=== PATIENT | male | born 1945 | race Caucasian/White ===

== ENCOUNTER → 2016-11-20 | Outpatient (CLI) | payer MEDICARE, OTHER ==
[2016-11-20 11:31] LABS: Basophils # (A) 0.1 k/uL (0-0.2); Basophils % (A) 1 %; CHCM 28.9; Eosinophils # (A) 0.2 k/uL (0-0.7); Eosinophils % (A) 3 %; HDW 3.31; HGB 11.4 gm/dL (13.0-17.5); Hypochromasia Marked; Luc # (Auto) 0.23; Luc % (Auto) 3; Lymphocytes # (A) 1.5 k/uL (1.0-4.8); Lymphocytes % (A) 18 %; MCH 21.7 pg (25.0-35.0); MCHC 29.9 g/dL (31.0-37.0); MCV 72.7 fL (80.0-100.0); Mean Platelet Volume 6.4; Microcytosis Moderate; Monocytes # (A) 0.2 k/uL (0-1.0); Monocytes % (A) 3 %; Neutrophils # (A) 6.1 k/uL (1.3-7.7); Neutrophils % (A) 72 %; RBC 5.23 m/uL (4.30-5.90); RDW 15.8 % (11.5-15.5); WBC 8.4 k/uL (3.8-10.6); WBC (Perox) 9.02
== END | disposition home or self-care (01) ==
LOC: LABPAT 10:58
PROVIDERS: ATTEND Anesthesiology
DX: Z01.812 Encounter for preprocedural laboratory examination (principal)
CPT/HCPCS: 85025

== ENCOUNTER 2016-11-25 12:56 | Inpatient (IN) | payer MEDICARE, OTHER ==
[2016-11-19 14:57] VITALS: BMI 22.8
[~2016-11-25 12:56] MED LIST: DEXAMETHASONE SOD PHOSPHATE 10 MG/ML 1 ML VIAL IV ONE; HEPARIN SODIUM,PORCINE 5,000 UNIT/ML 1 ML VIAL SQ ONE; LACTATED RINGERS 1,000 ML IV SCH; ONDANSETRON 4 MG/2 ML VIAL IVP ONE
[2016-11-25] MEDS ORDERED: LIDOCAINE 1% 20 ML VIAL (10MG/ML) FOR IV START INTRADERMA ONE (13:11)
[2016-11-25] MEDS ORDERED: LACTATED RINGERS 1,000 ML IV ONE (13:23)
[2016-11-25 13:25] LABS: Glucose,Whole Blood 126 mg/dL (75-99)
[2016-11-25] MEDS ORDERED: HEPARIN SODIUM,PORCINE 5,000 UNIT/ML 1 ML VIAL SQ ONE (13:33)
[2016-11-25] MEDS ORDERED: LIDOCAINE 1% INJ 10MG/ML (20 ML MDV) ONE (14:11)
[2016-11-25] MEDS ORDERED: HYDROmorphone (PF) 1 MG/ML ONE (14:11)
[2016-11-25] MEDS ORDERED: ROCURONIUM BROMIDE 10 MG/ML 10 ML VIAL IV ONE (14:11)
[2016-11-25] MEDS ORDERED: ePHEDrine 50 MG/ML 1 ML AMP ONE (14:11)
[2016-11-25] MEDS ORDERED: MIDAZOLAM 2 MG/2 ML VIAL ONE (14:11)
[2016-11-25] MEDS ORDERED: SODIUM CHLORIDE 0.9% 100 ML BAG ONE (14:11)
[2016-11-25] MEDS ORDERED: PROPOFOL 10 MG/ML 20 ML VIAL IV ONE (14:11)
[2016-11-25] MEDS ORDERED: NEOSTIGMINE 1 MG/ML 10 ML VIAL ONE (14:11)
[2016-11-25] MEDS ORDERED: SUCCINYLCHOLINE CHLORIDE VIAL 200 MG/10 ML VIAL IV ONE (14:11)
[2016-11-25] MEDS ORDERED: GLYCOPYRROLATE 0.2 MG/ML 2 ML VIAL ONE (14:11)
[2016-11-25] MEDS ORDERED: ceFAZolin 1,000 MG VIAL ONE (14:11)
[2016-11-25] MEDS ORDERED: fentaNYL (PF) 50 MCG/ML 2 ML AMP ONE (14:11)
[2016-11-25] MEDS: ceFAZolin 2 GM in SODIUM CHLORIDE 0.9% 100 ML IVPB ONE ×3 (14:20→17:33)
[2016-11-25] MEDS ORDERED: LIDOCAINE 1% INJ 10MG/ML (20 ML MDV) SQ ONE (14:31)
[2016-11-25] MEDS ORDERED: HYDROmorphone 1 MG/ML 1 ML SYRINGE IV PRN (15:40)
[2016-11-25] MEDS ORDERED: ONDANSETRON 4 MG/2 ML VIAL IVP PRN (15:40)
[2016-11-25] MEDS ORDERED: NALOXONE 0.4 MG/ML 1 ML VIAL IV PRN (15:40)
--- NOTE | 2016-11-25 15:40 | P.OP ---
Date of Procedure: 11/25/16 Preoperative Diagnosis: ventral hernia Postoperative Diagnosis: ventral hernia -containing bowel, extensive adhesions Procedure(s) Performed: ventral hernia repair with mesh, lysis of adhesions Anesthesia: MERY Surgeon: Simi Bush Estimated Blood Loss (ml): 15 IV fluids (ml): 1,600 Pathology: other (hernia sac) Condition: stable Disposition: PACU Indications for Procedure: symptomatic ventral hernia Operative Findings: ventral hernia containing bowel extensive adhesions Description of Procedure: patient was taken to the operating room and following induction of general anesthesia the abdomen was prepped and draped in a sterile fashion. The ventral hernia was just to the left of the supraumbilical midline area. There appeared to be bowel present in the hernia sac. The incision was made along the midline and the peritoneal cavity was entered. There was noted to be extensive adhesions and these were carefully taken down such that the hernia on the anterior abdominal wall was reduced. The hernia sac was removed and sent for pathology. The skin was freed from the area of the ventral hernia defect and the defect was closed using interrupted 0 Ethibond sutures. Midline abdominal incision was then closed using interrupted 0 Ethibond sutures as well. An ultrapro mesh was placed and secured using a Prolene suture. The subcutaneous tissues were reapproximated using 3-0 Vicryl. A Yoav-Hernandez drain was placed prior to this. The skin was reapproximated using carrillo. One percent lidocaine was used to anesthetize the area of the skin. Patient tolerated procedure in stable condition. The actual hernia defect was approximately 5 cm in size. all instrument and sponge counts were correct at the end of the case.
[2016-11-25] MEDS ORDERED: NITROGLYCERIN SL TABS 0.4 MG TAB SUBLINGUAL PRN (15:46)
[2016-11-25] MEDS: HYDROmorphone 1 MG/ML 1 ML SYRINGE IVP PRN ×7 (16:00→19:39)
[2016-11-25] MEDS ORDERED: MIDAZOLAM 2 MG/2 ML VIAL IVP ONE (16:31)
[2016-11-25 16:45] LABS: Glucose,Whole Blood 178 mg/dL (75-99)
[2016-11-25] MEDS ORDERED: KETOROLAC 30 MG/ML 1 ML VIAL IVP ONE (16:53)
[2016-11-25] MEDS ORDERED: MEPERIDINE 50 MG/ML SYRINGE IVP ONE (16:54)
[2016-11-25] MEDS ORDERED: OFIRMEV PER PHARMACY MISCELLANE PRN (18:57)
[2016-11-25] MEDS: ALPRAZolam 0.25 MG TAB PO PRN (19:38)
[2016-11-25 20:32] LABS: Glucose,Whole Blood 172 mg/dL (75-99)
[2016-11-25] MEDS: ACETAMINOPHEN IV (For NPO) 1,000 MG in EMPTY BAG 1 BAG IVPB PRN (20:49)
[2016-11-25] MEDS: DEXTROSE 5%-0.45% NACL 1,000 ML IV SCH (21:12)
[2016-11-25] MEDS: HEPARIN SODIUM,PORCINE 5,000 UNIT/ML 1 ML VIAL SQ SCH ×2 (21:13→23:45)
[2016-11-25] MEDS: metFORMIN 500 MG TAB PO SCH (21:14)
[2016-11-25] MEDS: AMIODARONE 200 MG TAB PO SCH (21:14)
[2016-11-25] MEDS: INSULIN LISPRO (humaLOG) 300 UNIT/3 ML VIAL SQ SCH (21:22)
[2016-11-25] MEDS: HYDROmorphone 2 MG/ML 1 ML SYRINGE IVP PRN (23:44)
[2016-11-26] MEDS: ACETAMINOPHEN IV (For NPO) 1,000 MG in EMPTY BAG 1 BAG IVPB PRN (04:13)
[2016-11-26] MEDS: DEXTROSE 5%-0.45% NACL 1,000 ML IV SCH ×3 (04:14→20:53)
[2016-11-26] MEDS: ALPRAZolam 0.25 MG TAB PO PRN ×2 (04:15→22:31)
[2016-11-26] MEDS: HYDROmorphone 2 MG/ML 1 ML SYRINGE IVP PRN ×3 (06:25→22:31)
[2016-11-26 07:18] LABS: Glucose,Whole Blood 147 mg/dL (75-99)
[2016-11-26] MEDS: metFORMIN 500 MG TAB PO SCH ×2 (08:00→20:52)
[2016-11-26] MEDS: AMIODARONE 200 MG TAB PO SCH ×2 (08:00→20:52)
[2016-11-26] MEDS: HEPARIN SODIUM,PORCINE 5,000 UNIT/ML 1 ML VIAL SQ SCH ×3 (08:00→23:54)
[2016-11-26] MEDS: INSULIN LISPRO (humaLOG) 300 UNIT/3 ML VIAL SQ SCH ×4 (08:00→20:52)
[2016-11-26] MEDS ORDERED: PANTOPRAZOLE 40 MG/10 ML VIAL IV SCH (09:00)
--- NOTE | 2016-11-26 10:37 | P.PN ---
Subjective 71-year-old being seen in follow-up visit for patient who is postop ventral hernia containing bowel with extensive adhesions done on November [address] Lopez. Currently patient is sitting up taking a diet. Patient continues to report having abdominal surgical pain. Patient is using the incentive spirometer with coaching can achieve 1500. Remains afebrile. Patient is voicing concerns about wearing the abdominal binder secondary to patient needing to wear his bilateral lower extremities prosthesis which a belt needs to be worn. Patient has bilateral below-knee amputee Objective - Vital Signs Vital signs: Vital Signs Temp 97 F L 11/26/16 07:00 Pulse 81 11/26/16 07:00 Resp 18 11/26/16 07:00 BP 128/74 11/26/16 07:00 Pulse Ox 98 11/26/16 07:00 Intake & Output 11/25/16 11/26/16 11/26/16 18:59 06:59 18:59 Intake Total 2740 1300 240 Output Total 15 35 450 Balance 2725 1265 -210 Weight 70.307 kg Intake: IV 2500 Intake, IV Titration 800 Amount Dextrose 5%-0.45% NaCl 1, 800 000 ml @ 100 mls/hr IV . Q10H EMILIANO Rx#:[id number] Oral 240 500 240 Output: Drainage 35 Abdomen 35 Urine 450 Estimated Blood Loss 15 Other: Voiding Method Urinal Urinal # Voids 1 - Exam Physical exam 71-year-old male sitting up in bed talkative oriented 3 taking a diet reports no nausea vomiting reports having surgical pain Lungs essentially clear with adequate air movement is able to use the incentive spirometer G 1500 currently on room air sats are documented 98% no cough noted Heart S1-S2 audible and regular denying chest pain Abdomen currently has an abdominal binder in place dressing to the surgical site dry Yoav-Hernandez drain in place a few hypoactive bowel tones noted abdomen slightly firm with slight distention noted Extremities bilateral BKA no edema noted upper extremities unremarkable - Labs Labs: Abnormal Lab Results - Last 24 Hours (Table) 11/25/16 11/25/16 11/25/16 Range/Units 13:23 16:41 20:30 POC Glucose (mg/dL) 126 H 178 H 172 H (75-99) mg/dL 11/26/16 Range/Units 07:13 POC Glucose (mg/dL) 147 H (75-99) mg/dL Assessment and Plan Plan: Impression Status post done on November 25 ventral hernia repair with mesh with lysis of adhesions due to ventral hernia containing bowel with extensive adhesions History of a prior CVA Type 2 diabetes non-insulin Bilateral below the knee amputation Hyperlipidemia Chronic pain with narcotic dependencies Hypertension Hypothyroid History of atrial fibrillation Plan Continue postop surgical care per surgical service PT OT eval Resume home meds as appropriate Pain control Encourage use of incentive spirometer use every 1 hour while awake Further recommendations pending DVT and GI prophylaxis The above dictated assessment and findings were discussed with dr lopez . Impression and the plan of care have been dictated as directed. Shae Workman nurse practitioner acting as a scribe for dr lopez
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
[2016-11-26 11:49] LABS: ALT 30 U/L (21-72); AST 18 U/L (17-59); Alkaline Phosphatase 71 U/L (38-126); Anion Gap 10 mmol/L; Blood Urea Nitrogen 18 mg/dL (9-20); Calcium 8.6 mg/dL (8.4-10.2); Carbon Dioxide 25 mmol/L (22-30); Chloride 100 mmol/L (98-107); Glucose 145 mg/dL (74-99); Non-African American GFR(MDRD) >60 (>60 ml/min/1.73 sqM); Potassium 4.4 mmol/L (3.5-5.1); Sodium 135 mmol/L (137-145); Total Bilirubin 0.4 mg/dL (0.2-1.3); Total Protein 6.6 g/dL (6.3-8.2)
[2016-11-26 11:52] LABS: Basophils % (A) 0 %; CH 20.6; CHCM 28.6; Eosinophils % (A) 0 %; HCT 33.9 % (39.0-53.0); Hypochromasia Marked; Luc # (Auto) 0.09; Luc % (Auto) 1; Lymphocytes # (A) 1.2 k/uL (1.0-4.8); Lymphocytes % (A) 15 %; MCH 21.2 pg (25.0-35.0); MCHC 29.5 g/dL (31.0-37.0); MCV 71.9 fL (80.0-100.0); Mean Platelet Volume 6.9; Microcytosis Moderate; Monocytes # (A) 0.3 k/uL (0-1.0); Monocytes % (A) 4 %; Neutrophils % (A) 80 %; RBC 4.72 m/uL (4.30-5.90); RDW 15.6 % (11.5-15.5); WBC 7.5 k/uL (3.8-10.6)
[2016-11-26 12:29] LABS: Glucose,Whole Blood 134 mg/dL (75-99)
[2016-11-26 14:05] LABS: Hemoglobin A1C 6.5 % (4.2-6.1)
[2016-11-26] MEDS: HYDROmorphone 1 MG/ML 1 ML SYRINGE IVP PRN ×2 (15:35→19:29)
[2016-11-26 17:09] LABS: Glucose,Whole Blood 149 mg/dL (75-99)
[2016-11-26 17:48] LABS: Glucose,Whole Blood 180 mg/dL (75-99)
[2016-11-26 20:40] LABS: Glucose,Whole Blood 140 mg/dL (75-99)
[2016-11-27] MEDS: HYDROmorphone 1 MG/ML 1 ML SYRINGE IVP PRN (02:30)
[2016-11-27 02:32] VITALS: PULSE 77
[2016-11-27 07:16] LABS: Glucose,Whole Blood 113 mg/dL (75-99)
[2016-11-27] MEDS: HYDROmorphone 2 MG/ML 1 ML SYRINGE IVP PRN (07:30)
[2016-11-27] MEDS ORDERED: PANTOPRAZOLE 40 MG TABLET PO SCH (07:30)
--- NOTE | 2016-11-27 08:19 | P.PN ---
Subjective Principal diagnosis: Postop day #2 ventral hernia repair Patient is a bilateral lower amputee who is status post ventral hernia repair related to a previous abdominal aortic aneurysm surgery. The patient is doing well at this time. He is tolerating diet without difficulty. He has had a bowel movement. He is planning to use his wheelchair during the next several weeks. He does have bilateral lower extremity prosthesis however secondary to the incision would be difficult for him to use these until the incision is more healed. Objective - Vital Signs Vital signs: Vital Signs Temp 98.3 F 11/27/16 02:31 Pulse 77 11/27/16 02:31 Resp 18 11/27/16 02:31 BP 138/73 11/27/16 02:31 Pulse Ox 96 11/27/16 02:31 Intake & Output 11/26/16 11/27/16 11/27/16 18:59 06:59 18:59 Intake Total 1220 500 Output Total 2295 1600 Balance -1075 -1100 Intake: IV 800 Dextrose 5%-0.45% NaCl 1, 800 000 ml @ 100 mls/hr IV . Q10H EMILIANO Rx#:[id number] Oral 420 500 Output: Drainage 20 Abdomen 20 Urine 2275 1600 Other: Voiding Method Urinal Urinal # Voids 1 3 - Constitutional Constitutional Comment(s): Bilateral lower extremity amputee General appearance: Present: average body habitus - Respiratory Respiratory: bilateral: CTA - Cardiovascular Heart sounds: normal: S1, S2 - Gastrointestinal Gastrointestinal Comment(s): Dressing clean and dry Yoav-Hernandez drain serosanguineous output General gastrointestinal: Present: normal bowel sounds - Psychiatric Psychiatric: Present: A&O x's 3, appropriate affect, intact judgment & insight - Labs CBC & Chem 7: 11/26/16 07:13 11/26/16 07:13 Labs: Abnormal Lab Results - Last 24 Hours (Table) 11/26/16 11/26/16 11/26/16 Range/Units 06:56 07:13 07:13 Hgb 10.0 L (13.0-17.5) gm/dL Hct 33.9 L (39.0-53.0) % MCV 71.9 L (80.0-100.0) fL MCH 21.2 L (25.0-35.0) pg MCHC 29.5 L (31.0-37.0) g/dL RDW 15.6 H (11.5-15.5) % Sodium 135 L (137-145) mmol/L Glucose 145 H (74-99) mg/dL POC Glucose (mg/dL) (75-99) mg/dL Hemoglobin A1c 6.5 H (4.2-6.1) % 11/26/16 11/26/16 11/26/16 Range/Units 12:27 16:56 17:32 Hgb (13.0-17.5) gm/dL Hct (39.0-53.0) % MCV (80.0-100.0) fL MCH (25.0-35.0) pg MCHC (31.0-37.0) g/dL RDW (11.5-15.5) % Sodium (137-145) mmol/L Glucose (74-99) mg/dL POC Glucose (mg/dL) 134 H 149 H 180 H (75-99) mg/dL Hemoglobin A1c (4.2-6.1) % 11/26/16 11/27/16 Range/Units 20:38 06:55 Hgb (13.0-17.5) gm/dL Hct (39.0-53.0) % MCV (80.0-100.0) fL MCH (25.0-35.0) pg MCHC (31.0-37.0) g/dL RDW (11.5-15.5) % Sodium (137-145) mmol/L Glucose (74-99) mg/dL POC Glucose (mg/dL) 140 H 113 H (75-99) mg/dL Hemoglobin A1c (4.2-6.1) % Assessment and Plan Plan: Impression/plan: 1. Patient status post ventral hernia repair with mesh and lysis of adhesions 2. Patient type 2 diabetes 3. Bilateral lower extremity amputation 4. Hyperlipidemia 5. Chronic pain with narcotic dependence 6. Hypertension 7. Hypothyroid 8. Atrial fibrillation Plan: 1. Patient is stable for discharge from a surgical standpoint at this time 2. Medical management as per preoperative
--- NOTE | 2016-11-27 08:22 | P.DS ---
Providers Date of admission: 11/25/16 15:38 Attending physician: Simi Bush Consults: 11/25/16 15:43 Consult Physician Routine Consulting Provider: Alvaro Lopez Consult Reason/Comments: medical management Do you want consulting provider notified?: Yes Primary care physician: Alvaro Lopez Hospital Course: Patient is a 71-year-old gentleman who is admitted following a ventral hernia repair. The patient has a complex medical history including prior abdominal aneurysm repair after which she developed any a ventral hernia. The patient additionally is a bilateral lower extremity amputee. He has atrial fibrillation. He has chronic pain management issues. The patient is postoperative day #2. He is tolerating his diet without difficulty. He is stable to be discharged home to be followed as an outpatient. Plan - Discharge Summary Discharge Medication List Fenofibrate Nanocrystallized [Fenofibrate] 145 mg PO QAM 05/01/14 [History] Hydrocodone/Acetaminophen [Hydrocodone/Acetaminophen 7.5-325] 1 tab PO Q4H PRN 05/01/14 [History] metFORMIN HCL [Glucophage] 1,000 mg PO HS 05/01/14 [History] metFORMIN HCL [Glucophage] 500 mg PO QAM 05/01/14 [History] Amiodarone HCl [Pacerone] 200 mg PO BID 11/19/16 [History] Aspirin [Adult Low Dose Aspirin EC] 81 mg PO DAILY 11/19/16 [History] Nitroglycerin Sl Tabs [Nitrostat] 0.4 mg SL Q5M PRN 11/19/16 [History] oxyCODONE ER [OxyCONTIN 10MG E.R] 10 mg PO Q6HR PRN 11/19/16 [History] Follow up Appointment(s)/Referral(s): Simi Bush MD [STAFF PHYSICIAN] - 1 Week Activity/Diet/Wound Care/Special Instructions: No heavy lifting Should use wheelchair for moving about until incision is healed Discharge Disposition: HOME SELF-CARE
[2016-11-27] MEDS: INSULIN LISPRO (humaLOG) 300 UNIT/3 ML VIAL SQ SCH ×2 (08:24→13:40)
[2016-11-27] MEDS: metFORMIN 500 MG TAB PO SCH (08:28)
[2016-11-27 08:59] VITALS: BP 140/87; RESP 16; TEMP 97.5
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
[2016-11-27] MEDS: HEPARIN SODIUM,PORCINE 5,000 UNIT/ML 1 ML VIAL SQ SCH (09:59)
[2016-11-27] MEDS: DEXTROSE 5%-0.45% NACL 1,000 ML IV SCH (09:59)
[2016-11-27] MEDS: AMIODARONE 200 MG TAB PO SCH (09:59)
[2016-11-27] MEDS ORDERED: oxyCODONE ER 10 MG TAB.ER.12H PO STA (11:46)
[2016-11-27 12:42] LABS: Glucose,Whole Blood 112 mg/dL (75-99)
== END 2016-11-27 15:41 | disposition home or self-care (01) | DRG 336 ==
LOC: OR 12:56 → 3SUR 15:38
PROVIDERS: ADMIT Surgery; ATTEND Surgery
PROC: 0DNW0ZZ Release Peritoneum, Open Approach (ICD-10-PCS; principal; 2016-11-25 14:00)
PROC: 0WQF0ZZ Repair Abdominal Wall, Open Approach (ICD-10-PCS; principal; 2016-11-25 14:00)
DX: K43.0 Incisional hernia with obstruction, without gangrene (principal); F11.20 Opioid dependence, uncomplicated; I48.91 Unspecified atrial fibrillation; J44.9 Chronic obstructive pulmonary disease, unspecified; E11.9 Type 2 diabetes mellitus without complications; E03.9 Hypothyroidism, unspecified; E78.5 Hyperlipidemia, unspecified; G89.29 Other chronic pain; I10 Essential (primary) hypertension; K21.9 Gastro-esophageal reflux disease without esophagitis; K66.0 Peritoneal adhesions (postprocedural) (postinfection); M19.90 Unspecified osteoarthritis, unspecified site; Z79.82 Long term (current) use of aspirin; Z85.038 Personal history of other malignant neoplasm of large intestine; Z86.718 Personal history of other venous thrombosis and embolism; Z86.73 Personal history of transient ischemic attack (TIA), and cerebral infarction without residual deficits; Z86.79 Personal history of other diseases of the circulatory system; Z87.891 Personal history of nicotine dependence; Z89.511 Acquired absence of right leg below knee; Z89.512 Acquired absence of left leg below knee; Z96.611 Presence of right artificial shoulder joint; Z96.612 Presence of left artificial shoulder joint; Z79.84 Long term (current) use of oral hypoglycemic drugs; Z79.899 Other long term (current) drug therapy
CPT/HCPCS: 80053; 83036; 85025; 88302

== ENCOUNTER 2016-12-24 19:40 | Inpatient (IN) | payer MEDICARE, OTHER ==
[2016-12-24 19:54] LABS: Glucose,Whole Blood 127 mg/dL (75-99)
[2016-12-24] MEDS ORDERED: SODIUM CHLORIDE 0.9% 1,000 ML IV STA (19:57)
[2016-12-24 20:18] LABS: Anisocytosis Slight; Basophils % (A) 1 %; CH 22.5; CHCM 30.1; Eosinophils # (A) 0.1 k/uL (0-0.7); Eosinophils % (A) 1 %; HCT 43.2 % (39.0-53.0); HDW 3.06; HGB 12.8 gm/dL (13.0-17.5); Hypochromasia Marked; Luc # (Auto) 0.29; Luc % (Auto) 4; Lymphocytes # (A) 1.2 k/uL (1.0-4.8); Lymphocytes % (A) 18 %; MCH 22.1 pg (25.0-35.0); MCHC 29.7 g/dL (31.0-37.0); MCV 74.6 fL (80.0-100.0); Mean Platelet Volume 6.5; Microcytosis Moderate; Monocytes # (A) 0.4 k/uL (0-1.0); Monocytes % (A) 7 %; Neutrophils # (A) 4.6 k/uL (1.3-7.7); Neutrophils % (A) 70 %; RBC 5.79 m/uL (4.30-5.90); RDW 19.9 % (11.5-15.5); WBC 6.6 k/uL (3.8-10.6); WBC (Perox) 6.89
[2016-12-24] MEDS ORDERED: SODIUM CHLORIDE 0.9% 500 ML IV STA (20:20)
[2016-12-24 20:26] LABS: ALT 48 U/L (21-72); AST 79 U/L (17-59); Alkaline Phosphatase 76 U/L (38-126); Anion Gap 15 mmol/L; Blood Urea Nitrogen 26 mg/dL (9-20); Calcium 8.9 mg/dL (8.4-10.2); Carbon Dioxide 24 mmol/L (22-30); Chloride 102 mmol/L (98-107); Glucose 128 mg/dL (74-99); Magnesium 1.6 mg/dL (1.6-2.3); Non-African American GFR(MDRD) >60 (>60 ml/min/1.73 sqM); Potassium 4.4 mmol/L (3.5-5.1); Sodium 141 mmol/L (137-145); Total Bilirubin 0.5 mg/dL (0.2-1.3); Total Protein 7.4 g/dL (6.3-8.2)
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
--- NOTE | 2016-12-24 20:49 | CT ---
EXAMINATION TYPE: CT brain wo con DATE OF EXAM: 12/24/2016 8:43 PM COMPARISON: NONE HISTORY: Confusion CT DLP: 1003.2 mGycm Automated exposure control for dose reduction was used. FINDINGS: There is cerebral atrophy. There is patchy hypodensity in the periventricular white matter. There is no mass effect nor midline shift. There is no sign of intracranial hemorrhage. There is also suggesti on of slight hypodensity in the brainstem. Calvarium is intact. IMPRESSION: Cerebral atrophy and chronic small vessel ischemia. No acute intracranial abnormality.
--- NOTE | 2016-12-24 20:51 | XR ---
EXAMINATION TYPE: XR chest 2V DATE OF EXAM: 12/24/2016 8:44 PM COMPARISON: 06/11/2013 HISTORY: Weakness TECHNIQUE: Frontal and lateral views of the chest are obtained. FINDINGS: There is a poor aspiration with crowding of lung markings. There is probably pulmonary vascular conge stion. I see no definite pleural effusion. There are no hilar masses. There are bilateral shoulder pr ostheses. Mediastinum is normal. There are chest leads. CONCLUSION: There is poor aspiration and new pulmonary vascular congestion compared to last exam the may relate t o heart failure. No pulmonary consolidation seen.
[2016-12-24] MEDS ORDERED: FUROSEMIDE 10 MG/ML 10 ML VIAL IV STA (21:00)
[2016-12-24] MEDS ORDERED: ASPIRIN 81 MG CHEW PO STA (21:00)
[2016-12-24] MEDS ORDERED: NITROGLYCERIN OINT 1 INCH/GM PACKET TOPICAL STA (21:00)
[2016-12-24] MEDS ORDERED: NITROGLYCERIN SL TABS 0.4 MG TAB SUBLINGUAL PRN (21:38)
[2016-12-24] MEDS ORDERED: ENOXAPARIN 40 MG/0.4 ML SYRINGE SQ SCH (21:45)
[2016-12-24] MEDS: HYDROcodone/APAP 7.5-325MG 1 EACH TAB PO PRN (22:05)
[2016-12-24 23:12] LABS: Troponin I <0.012 ng/mL (0.000-0.034)
[2016-12-24 23:18] VITALS: BMI 37.2
[2016-12-24 23:20] LABS: Creatine Kinase MB 17.2 ng/mL (0.0-2.4)
[2016-12-24] MEDS: NITROGLYCERIN OINT 1 INCH/GM PACKET TOPICAL SCH (23:23)
[2016-12-24] MEDS: FUROSEMIDE 10 MG/ML 4 ML VIAL IV SCH (23:23)
[2016-12-25 00:03] LABS: Appearance,Urine Clear (Clear); Bilirubin,Urine Negative (Negative); Glucose,Urine (UA) Negative (Negative); Ketones,Urine Negative (Negative); Leukocyte Esterase,Urine Negative (Negative); Nitrite,Urine Negative (Negative); PH, Urine 6.5 (5.0-8.0); Protein,Urine Negative (Negative); Specific Gravity,Urine 1.008 (1.001-1.035); UA Billing (MACRO vs. MICRO) CHEM; Urobilinogen,Urine <2.0 mg/dL (<2.0)
[2016-12-25] MEDS ORDERED: HEPARIN SODIUM,PORCINE 5,000 UNIT/ML 1 ML VIAL IV PRN (00:49)
[2016-12-25] MEDS ORDERED: HEPARIN SODIUM,PORCINE/D5W PMX 25,000 UNIT in DEXTROSE/WATER 1 500ML.BAG IV SCH (01:00)
[2016-12-25 01:17] LABS: Anisocytosis Moderate; Basophils # (A) 0.1 k/uL (0-0.2); Basophils % (A) 1 %; CHCM 31.2; Eosinophils # (A) 0.1 k/uL (0-0.7); Eosinophils % (A) 2 %; HCT 42.3 % (39.0-53.0); HDW 3.05; HGB 12.6 gm/dL (13.0-17.5); Hypochromasia Moderate; Luc # (Auto) 0.17; Luc % (Auto) 2; Lymphocytes # (A) 1.4 k/uL (1.0-4.8); Lymphocytes % (A) 18 %; MCH 22.1 pg (25.0-35.0); MCHC 29.9 g/dL (31.0-37.0); MCV 73.8 fL (80.0-100.0); Mean Platelet Volume 7.3; Microcytosis Marked; Monocytes # (A) 0.5 k/uL (0-1.0); Monocytes % (A) 7 %; Neutrophils # (A) 5.5 k/uL (1.3-7.7); Neutrophils % (A) 71 %; RBC 5.73 m/uL (4.30-5.90); RDW 20.5 % (11.5-15.5); WBC 7.8 k/uL (3.8-10.6); WBC (Perox) 7.91
[2016-12-25 01:28] LABS: INR 1.2 (<1.1); Partial Thromboplastin Time 25.2 sec (22.0-30.0); Prothrombin Time 11.8 sec (9.0-12.0)
[2016-12-25 01:57] LABS: Troponin I <0.012 ng/mL (0.000-0.034)
[2016-12-25 02:02] LABS: Creatine Kinase MB 20.4 ng/mL (0.0-2.4)
[2016-12-25] MEDS: HYDROcodone/APAP 7.5-325MG 1 EACH TAB PO PRN ×4 (02:15→14:35)
[2016-12-25 06:19] LABS: Glucose,Whole Blood 112 mg/dL (75-99)
[2016-12-25] MEDS ORDERED: metFORMIN 500 MG TAB PO SCH ×2 (07:30→21:00)
[2016-12-25 07:45] LABS: Hemoglobin A1C 5.9 % (4.2-6.1)
[2016-12-25] MEDS ORDERED: FENOFIBRATE 160 MG TAB PO SCH (09:00)
[2016-12-25] MEDS ORDERED: AMIODARONE 100 MG TAB PO SCH (09:00)
[2016-12-25] MEDS ORDERED: ASPIRIN 325 MG TAB PO SCH (09:00)
[2016-12-25] MEDS ORDERED: ASPIRIN 81 MG CHEW PO SCH (09:00)
[2016-12-25 09:29] VITALS: RESP 20
[2016-12-25] MEDS: NITROGLYCERIN OINT 1 INCH/GM PACKET TOPICAL SCH ×2 (09:44→14:34)
[2016-12-25] MEDS: FUROSEMIDE 10 MG/ML 4 ML VIAL IV SCH (09:44)
--- NOTE | 2016-12-25 10:11 | CONS ---
DATE OF CONSULTATION: CHIEF COMPLAINT: Epigastric pain. Oswaldo is a 71-year-old gentleman known to me from my outpatient practice with chronic atrial flutter, not a candidate for anticoagulation because of GI bleed, thought not to be a candidate for left atrial appendage exclusion surgery. History of bilateral amputation, [id number] diabetes who presents to the hospital complaining of epigastric discomfort. His pain is primarily in the incision site. Patient had a ventral hernia for which he underwent surgery. He does not have any chest pain, difficulty in breathing, palpitations, dizziness, or syncope. Since admission, his only symptom is the epigastric discomfort. Cardiac enzymes have been negative. EKG shows atrial flutter with controlled ventricular rate. Hemoglobin is 12.6. He had a CT scan of the brain. I am not quite sure why. We were told that he was confused on his initial presentation and the CT brain was unremarkable. A chest x-ray did not reveal pleural effusion. I have been consulted for chest pain. Past medical history is significant for chronic atrial flutter, rhr-[id number] diabetes. Medications at home include: 1. Pacerone 200 b.i.d. 2. Aspirin. 3. Fenofibrate. 4. Metformin. 5. Flomax. ALLERGIES: There are no known drug allergies. Family history is negative for premature coronary artery disease. Social history is negative for current smoking, EtOH abuse, or drug abuse. REVIEW OF SYSTEMS: HEENT is unremarkable. CARDIAC: As described above. RESPIRATORY: Negative. GI: Negative. GENITOURINARY: Negative. ALLERGY/IMMUNOLOGY: Negative. SKIN: Negative. MUSCULOSKELETAL: Significant for bilateral amputation. PSYCHOSOCIAL: Negative. ENDOCRINE: Negative. DERM: Negative. CONSTITUTIONAL: Negative. The rest of the system review is not relevant. On exam, heart rate is 80 beats per minute, blood pressure 100/70, respiratory rate is 18. There is no jugular venous distention. Chest exam reveals good air entry bilaterally. Heart exam reveals first and second heart sounds, irregular rhythm, and a systolic murmur at the apex. Abdomen is soft. Exam of the extremities did not reveal any edema. Peripheral pulses are felt. Labs show a hemoglobin of 12.6, platelet count is 211. Troponin is negative. ASSESSMENT: 1. Atypical chest pain. 2. Epigastric pain. 3. Chronic atrial flutter. PLAN: From cardiac standpoint, patient is stable. I am going to review his outpatient records. NV is ruled out. If he is discharged home, I will consider an outpatient stress test on him. Thank you for allowing us to participate in the care of this pleasant gentleman.
[2016-12-25 12:17] LABS: Glucose,Whole Blood 141 mg/dL (75-99)
[2016-12-25] MEDS ORDERED: PANTOPRAZOLE 40 MG/10 ML VIAL IVP SCH (14:15)
[2016-12-25 14:43] VITALS: BP 117/75; PULSE 98; TEMP 97
--- NOTE | 2016-12-25 16:36 | HP ---
DATE OF ADMISSION: This dictation is both H&P and discharge summary. Patient is a 71-year-old gentleman who apparently came in with some nonspecific symptoms to ER of excessive sleeping in the garage and patient today when I evaluated only complained of epigastric abdominal burning sensation. Patient has a recent abdominal surgery. Patient had a laparotomy and patient is complaining of some pain in incision site area as well, although incision site area appears to be clean. The patient's chest x-ray showed diffuse interstitial pattern. I do not believe it is pulmonary edema. It was read as worse compared to previous exam, because of which patient is admitted for congestive heart failure, although patient does not have any other signs or symptoms of congestive heart failure. Patient was evaluated by Cardiology and patient follows with Dr. Bradley as an outpatient. I do not have any echocardiogram available but the patient does not have any JVD. BNP is only 900. Patient does not have any S3. No pedal edema. Patient denied any shortness of breath, orthopnea, PND. I do not believe patient has congestive heart failure. Patient does have some chronic interstitial pattern on the chest x-ray which is probably due to interstitial lung disease and may benefit from outpatient follow with Pulmonary. Patient will be need Prilosec for at least 14 days for gastritis. He does have symptoms of that. Patient had a cardiac catheterization 2 years ago which showed clean coronaries. Patient does have history of atrial fibrillation, not on anticoagulation because of gastrointestinal bleed in the past. Home medications include: Fenofibrate, hydrocodone, acetaminophen, metformin, amiodarone, aspirin, nitroglycerin, oxycodone. ALLERGIES: No known drug allergies. Past medical history is significant for atrial fibrillation, diabetes mellitus, DVT in the past, hypertension, osteoarthritis, the patient had hernia repair recently. It appears to be ventral hernia repair. Bowel resection surgery, cardiac catheterization and stent placement, joint replacement surgery, orthopedic surgeries in the past. SOCIAL HISTORY: Former smoker. Quit smoking in 2005. Used to smoke 2 and a half packs per day. Denied any alcohol abuse or any drug abuse. FAMILY HISTORY: Denied any family history of hypertension, diabetes mellitus in the family. PHYSICAL EXAMINATION: VITAL SIGNS: Temperature 97.0, pulse of 98, respiratory rate of 18, blood pressure 117/75, saturating at 97% on room air. GENERAL: The patient is alert and oriented x3, not in any acute distress. Well developed, well nourished. HEENT: Pupils are round and equally reacting to light. EOMI. No scleral icterus. No conjunctival pallor. Normocephalic, atraumatic. No pharyngeal erythema. No thyromegaly. CARDIOVASCULAR: S1 and S2 present. No murmurs, rubs, or gallops. PULMONARY: Chest is clear to auscultation, no wheezing or crackles. ABDOMEN: Patient has a midline abdominal scar from his recent surgery, which appears to be clean without any signs or symptoms of infection. Patient has very minimal epigastric abdominal tenderness, probably due to gastritis. MUSCULOSKELETAL: No joint swelling or deformity. EXTREMITIES: No cyanosis, clubbing, or pedal edema. NEUROLOGICAL: Gross neurological examination did not reveal any focal deficits. SKIN: No rashes. ASSESSMENT AND PLAN: 1. Rule out congestive heart failure. We do not believe patient has congestive heart failure. Patient has chronic interstitial pattern. Patient will benefit from outpatient follow with pulmonary. Patient received Lasix last night. Patient will not need any Lasix upon discharge. 2. Epigastric abdominal burning discomfort, pretty much consistent with gastroesophageal reflux or gastritis. Patient will be discharged on 14 days of Prilosec. 3. Atrial fibrillation, rate controlled at this point of time. Patient is on amiodarone and not a candidate for anticoagulation because of his recurrent GI bleeds in the past. 4. Type 2 diabetes mellitus. The patient can continue his home medications. Patient will be discharged today. DISCHARGE DIET: Cardiac and ADA 1800 calorie diet. Follow up with Dr. Lopez on December 30 at 10:00 a.m., Dr. Edwardo Bradley on January 01 at 3:30 p.m. Activity as tolerated.
--- NOTE | 2016-12-30 15:09 | ECHOF ---
Referral Reason:Heart Failure MEASUREMENTS -------- HEIGHT: 144.8 cm WEIGHT: 67.6 kg BP: 121/80 RVIDd: 3.2 cm (< 3.3) IVSd: 1.0 cm (0.6 - 1.1) LVIDd: 4.1 cm (3.9 - 5.3) LVPWd: 1.0 cm (0.6 - 1.1) IVSs: 1.3 cm LVIDs: 2.6 cm LVPWs: 1.4 cm LA Diam: 3.3 cm (2.7 - 3.8) LAESV Index (A-L): 41.27 ml/m Ao Diam: 2.8 cm (2.0 - 3.7) AV Cusp: 1.5 cm (1.5 - 2.6) LA Diam: 2.6 cm (2.7 - 3.8) MV EXCURSION: 13.189 mm (> 18.000) MV EF SLOPE: 106 mm/s (70 - 150) EPSS: 0.8 cm MV E Jack: 1.01 m/s MV DecT: 121 ms MV A Jack: 0.65 m/s MV E/A Ratio: 1.55 RAP: 5.00 mmHg RVSP: 16.18 mmHg FINDINGS -------- Sinus rhythm. This was a technically good study. Left ventricular wall thickness is normal. Overall left ventricular systolic function is low-normal with, an EF between 50 - 55 %. The right ventricle is normal in size. LA is severely dilated >40 ml/m2 The right atrial size is normal. Aortic valve is trileaflet and is mildly thickened. The mitral valve leaflets are mildly thickened. Mild mitral annular calcification present. Mild mitral regurgitation is present. Trace tricuspid regurgitation present. Right ventricular systolic pressure is normal at < 35 mmHg. Pulmonic valve appears structurally normal. The aortic root size is normal. Normal inferior vena cava with normal inspiratory collapse consistent with estimated right atrial pressure of 5 mmHg. There is no pericardial effusion. CONCLUSIONS -------- 1. Sinus rhythm. 2. Mild mitral annular calcification present. 3. Mild mitral regurgitation is present. 4. Trace tricuspid regurgitation present. 5. Right ventricular systolic pressure is normal at < 35 mmHg. 6. Pulmonic valve appears structurally normal. 7. The aortic root size is normal. 8. There is no pericardial effusion. 9. This was a technically good study. 10. Left ventricular wall thickness is normal. 11. Overall left ventricular systolic function is low-normal with, an EF between 50 - 55 %. 12. The right ventricle is normal in size. 13. LA is severely dilated >40 ml/m2 14. The right atrial size is normal. 15. Aortic valve is trileaflet and is mildly thickened. 16. The mitral valve leaflets are mildly thickened. BLEND TECHNICIAN: Hollie Salazar RDCS
== END 2016-12-25 15:55 | disposition home or self-care (01) | DRG 392 ==
LOC: EC 19:40 → 6SEL 21:35
PROVIDERS: ADMIT Internal Medicine; ATTEND Internal Medicine
DX: K21.9 Gastro-esophageal reflux disease without esophagitis (principal); J84.9 Interstitial pulmonary disease, unspecified; I48.92 Unspecified atrial flutter; I11.0 Hypertensive heart disease with heart failure; I48.91 Unspecified atrial fibrillation; I50.9 Heart failure, unspecified; E11.9 Type 2 diabetes mellitus without complications; D64.9 Anemia, unspecified; R09.02 Hypoxemia; K29.70 Gastritis, unspecified, without bleeding; M19.90 Unspecified osteoarthritis, unspecified site; Z87.891 Personal history of nicotine dependence; Z89.511 Acquired absence of right leg below knee; Z89.512 Acquired absence of left leg below knee; Z96.611 Presence of right artificial shoulder joint; Z96.612 Presence of left artificial shoulder joint; Z85.038 Personal history of other malignant neoplasm of large intestine; Z98.42 Cataract extraction status, left eye; Z98.41 Cataract extraction status, right eye; Z79.84 Long term (current) use of oral hypoglycemic drugs; Z79.82 Long term (current) use of aspirin; Z79.899 Other long term (current) drug therapy
CPT/HCPCS: 36415; 70450; 71020; 80053; 81003; 82140; 82553; 83036; 83735; 83880; 84100; 84484; 85025; 85610; 85730; 87040; 87086; 93005; 93306

== ENCOUNTER 2017-03-13 12:12 | Emergency (ER) | payer OTHER, MEDICARE ==
[2017-03-13] MEDS ORDERED: DILTIAZEM 125 MG in SODIUM CHLORIDE 0.9% 100 ML IV ONE (12:29)
[2017-03-13] MEDS ORDERED: SODIUM CHLORIDE 0.9% 500 ML IV STA (12:29)
[2017-03-13] MEDS ORDERED: DILTIAZEM 5 MG/ML 5 ML VIAL IVP STA ×2 (12:29→14:37)
[2017-03-13] MEDS ORDERED: SODIUM CHLORIDE 0.9% 1,000 ML IV STA (12:29)
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
[2017-03-13 14:17] LABS: Anisocytosis Slight; Basophils # (A) 0.1 k/uL (0-0.2); Basophils % (A) 1 %; CH 26.1; CHCM 33.1; Eosinophils # (A) 0.2 k/uL (0-0.7); Eosinophils % (A) 3 %; HCT 47.1 % (39.0-53.0); HDW 2.92; HGB 15.7 gm/dL (13.0-17.5); Luc # (Auto) 0.13; Luc % (Auto) 3; Lymphocytes # (A) 1.5 k/uL (1.0-4.8); Lymphocytes % (A) 28 %; MCH 26.3 pg (25.0-35.0); MCHC 33.3 g/dL (31.0-37.0); MCV 78.9 fL (80.0-100.0); Mean Platelet Volume 6.6; Microcytosis Slight; Monocytes # (A) 0.3 k/uL (0-1.0); Monocytes % (A) 6 %; Neutrophils # (A) 3.2 k/uL (1.3-7.7); Neutrophils % (A) 60 %; RBC 5.96 m/uL (4.30-5.90); RDW 16.3 % (11.5-15.5); WBC 5.4 k/uL (3.8-10.6); WBC (Perox) 5.53
[2017-03-13 14:27] LABS: ALT 32 U/L (21-72); AST 33 U/L (17-59); Alkaline Phosphatase 68 U/L (38-126); Anion Gap 11 mmol/L; Blood Urea Nitrogen 14 mg/dL (9-20); Calcium 9.2 mg/dL (8.4-10.2); Carbon Dioxide 23 mmol/L (22-30); Chloride 108 mmol/L (98-107); Glucose 156 mg/dL (74-99); Magnesium 1.5 mg/dL (1.6-2.3); Non-African American GFR(MDRD) >60 (>60 ml/min/1.73 sqM); Phosphorous 2.4 mg/dL (2.5-4.5); Potassium 4.2 mmol/L (3.5-5.1); Sodium 142 mmol/L (137-145); Total Bilirubin 0.6 mg/dL (0.2-1.3); Total Protein 7.7 g/dL (6.3-8.2)
[2017-03-13 14:29] LABS: INR 1.2 (<1.1); Prothrombin Time 11.6 sec (9.0-12.0)
[2017-03-13 14:30] LABS: Partial Thromboplastin Time 23.9 sec (22.0-30.0)
[2017-03-13 14:34] LABS: Appearance,Urine Clear (Clear); Bilirubin,Urine Negative (Negative); Glucose,Urine (UA) Negative (Negative); Ketones,Urine Negative (Negative); Leukocyte Esterase,Urine Negative (Negative); Mucus,Urine Rare /hpf; Nitrite,Urine Negative (Negative); Particle Count 1067; Protein,Urine 1+ (Negative); RBC,Urine 1 /hpf (0-5); Specific Gravity,Urine 1.011 (1.001-1.035); Squamous Epithelial Cell,Urine <1 /hpf (0-4); UA Billing (MACRO vs. MICRO) MICRO; Urobilinogen,Urine <2.0 mg/dL (<2.0); WBC,Urine <1 /hpf (0-5)
[2017-03-13] MEDS ORDERED: METOPROLOL TARTRATE 5 MG/5 ML VIAL IVP PRN (14:37)
[2017-03-13 14:47] LABS: Creatine Kinase 165 U/L (55-170)
[2017-03-13 15:00] LABS: Creatine Kinase MB 1.3 ng/mL (0.0-2.4); Troponin I <0.012 ng/mL (0.000-0.034)
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
[2017-03-13 15:49] VITALS: BP 120/80; PULSE 89; RESP 18; TEMP 98.7
== END 2017-03-13 15:46 | disposition home or self-care (01) ==
LOC: EC 12:12
DX: I48.91 Unspecified atrial fibrillation (principal); V89.2XXA Person injured in unspecified motor-vehicle accident, traffic, initial encounter; E11.9 Type 2 diabetes mellitus without complications; M19.90 Unspecified osteoarthritis, unspecified site; Z99.3 Dependence on wheelchair; Z85.038 Personal history of other malignant neoplasm of large intestine; Z86.718 Personal history of other venous thrombosis and embolism; Z97.16 Presence of artificial legs, bilateral (complete) (partial); Z95.5 Presence of coronary angioplasty implant and graft; Z87.891 Personal history of nicotine dependence; Z79.84 Long term (current) use of oral hypoglycemic drugs; Z79.899 Other long term (current) drug therapy; Z79.82 Long term (current) use of aspirin
CPT/HCPCS: 36415; 71020; 72170; 80053; 80162; 81001; 82550; 82553; 83735; 84100; 84443; 84484; 85025; 85610; 85730; 93005; 96365; 96366; 96375; 96376; 99285